=== PATIENT | female | born 1940 | race Caucasian/White ===

== ENCOUNTER 2017-03-30 13:25 | Inpatient (IN) | payer MEDICARE ==
[~2017-03-30] VITALS: Ht 154.9 cm; Wt 54.3 kg
[2017-03-30] MEDS ORDERED: ONDANSETRON 2MG/ML, 2ML IVPush ONE (14:00)
[2017-03-30] MEDS ORDERED: SODIUM CHLORIDE FLUSH 10ML SYR IVF ONE (14:00)
[2017-03-30] MEDS ORDERED: SODIUM CHLORIDE 0.9% 1,000ML IVBOLUS ONE (14:00)
[2017-03-30] MEDS ORDERED: AMLO2.5T PO (14:19)
[2017-03-30] MEDS ORDERED: LEVO75TA5 PO (14:19)
[2017-03-30] MEDS ORDERED: TRAM50TA2 PO (14:19)
[2017-03-30] MEDS ORDERED: ALPR-475 PO (14:19)
[2017-03-30] MEDS ORDERED: ONDANSETRON 2MG/ML, 2ML ONE (14:28)
[2017-03-30] MEDS ORDERED: MORPHINE SULFATE 4 MG/ML, 1ML ONE ×2 (14:28→18:05)
[2017-03-30] MEDS: MORPHINE SULFATE 4 MG/ML, 1ML IVPush PRN ×2 (14:30→18:06)
[2017-03-30] MEDS ORDERED: ACETAMINOPHEN 325 MG SUPP ONE (14:37)
[2017-03-30] MEDS ORDERED: ACETAMINOPHEN 650 MG SUPP PR ONE (15:00)
[2017-03-30 15:02] LABS: ASPARTATE AMINO TRANSFERASE 28 U/L (15-37)
[2017-03-30 15:04] LABS: PATH.CAST-FLAG NOT PRESENT; SPERM-FLAG NOT PRESENT; SRC-FLAG NOT PRESENT; XTAL-FLAG NOT PRESENT; YLC-FLAG NOT PRESENT
[2017-03-30 15:07] LABS: BLOOD UREA NITROGEN 23 mg/dL (7-18)
[2017-03-30 15:08] LABS: ACETAMINOPHEN < 2 mcg/mL (10-30); IS PT STATUS REG ER OR PRE ER? YES
[2017-03-30] MEDS ORDERED: LABETALOL 5MG/ML, 20ML IVPush ONE (16:00)
[2017-03-30] MEDS ORDERED: LABETALOL 5MG/ML, 20ML ONE (16:02)
[2017-03-30] MEDS ORDERED: DOCUSATE 100 MG CAPSULE PO PRN (18:00)
[2017-03-30] MEDS ORDERED: POLYETHYLENE GLYCOL 17 GM PACKET PO PRN (18:00)
[2017-03-30] MEDS ORDERED: BISACODYL 10 MG SUPP PR PRN (18:00)
[2017-03-30] MEDS: SODIUM CHLORIDE 0.9% 1,000 ML IV SCH (18:06)
[2017-03-30 20:33] VITALS: BP 172/67
[2017-03-30] MEDS: ENALAPRILAT 1.25 MG/ML, 2ML IVPush PRN (21:17)
[2017-03-30] MEDS: FAMOTIDINE 20 MG/2 ML IVPush SCH (22:21)
[2017-03-31] MEDS: ACETAMINOPHEN 325 MG TABLET PO PRN (01:31)
[2017-03-31 04:22] VITALS: BP 128/69
[2017-03-31 04:34] LABS: BLOOD UREA NITROGEN 23 mg/dL (7-18)
[2017-03-31 04:42] LABS: ASPARTATE AMINO TRANSFERASE 17 U/L (15-37)
[2017-03-31] MEDS: ENALAPRILAT 1.25 MG/ML, 2ML IVPush PRN ×2 (05:03→23:05)
[2017-03-31] MEDS: LEVOTHYROXINE 75 MCG TABLET PO SCH (05:45)
[2017-03-31] MEDS: SODIUM CHLORIDE 0.9% 1,000 ML IV SCH ×2 (05:59→22:02)
[2017-03-31] MEDS: FAMOTIDINE 20 MG/2 ML IVPush SCH ×2 (09:00→21:00)
[2017-03-31] MEDS ORDERED: LORazepam 1MG TABLET ONE (09:59)
[2017-03-31] MEDS ORDERED: LORazepam 0.5MG TABLET PO PRN (10:00)
[2017-04-01] MEDS: hydrALAzine 20 MG/ML, 1ML IV PRN ×3 (00:40→17:29)
[2017-04-01] MEDS: LABETALOL 5MG/ML, 20ML IVPush PRN ×3 (03:02→19:42)
[2017-04-01 04:00] VITALS: BP 160/62
[2017-04-01 04:34] LABS: BLOOD UREA NITROGEN 14 mg/dL (7-18)
[2017-04-01 04:39] LABS: ASPARTATE AMINO TRANSFERASE 20 U/L (15-37)
[2017-04-01] MEDS: ENALAPRILAT 1.25 MG/ML, 2ML IVPush PRN ×2 (05:15→21:25)
[2017-04-01] MEDS: LEVOTHYROXINE 75 MCG TABLET PO SCH (06:35)
[2017-04-01] MEDS: FAMOTIDINE 20 MG/2 ML IVPush SCH ×2 (07:47→21:06)
[2017-04-01] MEDS ORDERED: POTASSIUM CHLORIDE 10% 40 MEQ/30 ML UDC PO ONE (08:00)
[2017-04-01] MEDS ORDERED: GADOBUTROL 7.5 MMOL/7.5 ML PFS ONE (12:58)
[2017-04-01] MEDS: SODIUM CHLORIDE 0.9% 1,000 ML IV SCH (14:54)
[2017-04-02] MEDS: LABETALOL 5MG/ML, 20ML IVPush PRN (00:08)
[2017-04-02] MEDS: hydrALAzine 20 MG/ML, 1ML IV PRN ×3 (01:02→10:36)
[2017-04-02 04:00] VITALS: BP 157/102
[2017-04-02] MEDS: SODIUM CHLORIDE 0.9% 1,000 ML IV SCH ×2 (04:46→18:09)
[2017-04-02] MEDS: LEVOTHYROXINE 75 MCG TABLET PO SCH (05:27)
[2017-04-02] MEDS: FAMOTIDINE 20 MG/2 ML IVPush SCH ×2 (09:54→21:21)
[2017-04-02] MEDS: LORazepam 0.5MG TABLET PO SCH ×2 (12:44→21:21)
[2017-04-02] MEDS: LISINOPRIL 10 MG TABLET PO SCH ×2 (12:45→21:26)
[2017-04-02 20:17] VITALS: BP 164/69
[2017-04-03 01:54] VITALS: BP 186/88
[2017-04-03 06:10] LABS: BLOOD UREA NITROGEN 19 mg/dL (7-18)
[2017-04-03] MEDS: LEVOTHYROXINE 75 MCG TABLET PO SCH (06:26)
[2017-04-03 06:50] VITALS: BP 168/51
[2017-04-03] MEDS: SODIUM CHLORIDE 0.9% 1,000 ML IV SCH ×2 (07:53→20:09)
[2017-04-03] MEDS: LORazepam 0.5MG TABLET PO SCH ×3 (10:20→23:43)
[2017-04-03] MEDS: LISINOPRIL 10 MG TABLET PO SCH ×2 (10:21→20:10)
[2017-04-03] MEDS: FAMOTIDINE 20 MG/2 ML IVPush SCH (10:21)
[2017-04-03 12:25] VITALS: BP 150/76
[2017-04-03] MEDS: AMLODIPINE 5 MG TABLET PO SCH (12:39)
[2017-04-03 18:34] VITALS: BP 163/76
[2017-04-03] MEDS: LEVOFLOXACIN/PMX 750MG/150ML 150 ML IV SCH (20:10)
[2017-04-03] MEDS ORDERED: ALBUTEROL SULFATE 2.5 MG/3 ML ONE (23:32)
[2017-04-03] MEDS: ACETAMINOPHEN 325 MG TABLET PO PRN (23:43)
[2017-04-04] MEDS ORDERED: ALBUTEROL SULFATE 2.5 MG/3 ML NPPB PRN (00:30)
[2017-04-04 00:33] VITALS: BP 157/73
[2017-04-04] MEDS: LEVOTHYROXINE 75 MCG TABLET PO SCH (06:12)
[2017-04-04 08:00] VITALS: BP 174/74
[2017-04-04] MEDS: LISINOPRIL 10 MG TABLET PO SCH ×2 (09:12→20:36)
[2017-04-04] MEDS: PIPERACILLIN/TAZO 3.375 GM in SODIUM CHLORIDE 0.9% 50 ML IV SCH ×3 (09:12→19:36)
[2017-04-04] MEDS: AMLODIPINE 5 MG TABLET PO SCH (09:12)
[2017-04-04] MEDS: LORazepam 0.5MG TABLET PO SCH ×3 (09:12→20:35)
[2017-04-04] MEDS: SODIUM CHLORIDE 0.9% 1,000 ML IV SCH (13:52)
[2017-04-04 14:00] VITALS: BP 133/70
[2017-04-04 19:34] VITALS: BP 154/67
[2017-04-04] MEDS: LEVOFLOXACIN/PMX 750MG/150ML 150 ML IV SCH (20:35)
[2017-04-05] MEDS: PIPERACILLIN/TAZO 3.375 GM in SODIUM CHLORIDE 0.9% 50 ML IV SCH ×3 (00:41→18:47)
[2017-04-05 01:24] VITALS: BP 155/86
[2017-04-05] MEDS: SODIUM CHLORIDE 0.9% 1,000 ML IV SCH ×2 (03:17→23:25)
[2017-04-05] MEDS: LEVOTHYROXINE 75 MCG TABLET PO SCH (05:24)
[2017-04-05 05:46] LABS: BLOOD UREA NITROGEN 25 mg/dL (7-18)
[2017-04-05 06:40] VITALS: BP 153/72
[2017-04-05] MEDS: LORazepam 0.5MG TABLET PO SCH (09:00)
[2017-04-05] MEDS: AMLODIPINE 5 MG TABLET PO SCH (10:31)
[2017-04-05] MEDS: LISINOPRIL 10 MG TABLET PO SCH ×2 (10:32→20:47)
[2017-04-05 12:14] VITALS: BP 137/64
[2017-04-05 19:34] VITALS: BP 164/72
[2017-04-05] MEDS: LEVOFLOXACIN/PMX 750MG/150ML 150 ML IV SCH (20:47)
[2017-04-06] MEDS: PIPERACILLIN/TAZO 3.375 GM in SODIUM CHLORIDE 0.9% 50 ML IV SCH ×3 (00:58→13:00)
[2017-04-06 01:03] VITALS: BP 159/71
[2017-04-06] MEDS: LEVOTHYROXINE 75 MCG TABLET PO SCH (05:49)
[2017-04-06 06:07] LABS: BLOOD UREA NITROGEN 21 mg/dL (7-18)
[2017-04-06 07:10] VITALS: BP 169/73
[2017-04-06] MEDS ORDERED: LISI-167 PO (10:02)
[2017-04-06] MEDS ORDERED: AMLO2.5T PO (10:02)
[2017-04-06] MEDS ORDERED: PIPE3.373 IV (10:02)
[2017-04-06] MEDS: LISINOPRIL 10 MG TABLET PO SCH (10:41)
[2017-04-06] MEDS ORDERED: AMLODIPINE 5 MG TABLET PO ONE (12:45)
[2017-04-07] MEDS ORDERED: AMLODIPINE 5 MG TABLET PO SCH (09:00)
== END 2017-04-06 14:23 | DRG 64 ==
LOC: ED 16:30 → EDIP 16:38 → ICU 20:02 → CCU 04-01 18:19 → 4EST 04-02 17:58
PROVIDERS: ADMIT Hospitalist; ATTEND Hospitalist
DX: I63.532 Cerebral infarction due to unspecified occlusion or stenosis of left posterior cerebral artery (principal); I61.1 Nontraumatic intracerebral hemorrhage in hemisphere, cortical; J18.9 Pneumonia, unspecified organism; N17.0 Acute kidney failure with tubular necrosis; I10 Essential (primary) hypertension; E03.9 Hypothyroidism, unspecified; H54.7 Unspecified visual loss; H53.40 Unspecified visual field defects; H35.30 Unspecified macular degeneration; I25.10 Atherosclerotic heart disease of native coronary artery without angina pectoris; Z77.22 Contact with and (suspected) exposure to environmental tobacco smoke (acute) (chronic); G89.29 Other chronic pain; H53.462 Homonymous bilateral field defects, left side; H53.8 Other visual disturbances; I49.3 Ventricular premature depolarization; M54.5 Low back pain; Z88.5 Allergy status to narcotic agent; Z79.899 Other long term (current) drug therapy; Z87.891 Personal history of nicotine dependence
CPT/HCPCS: 36415; 70450; 70544; 70553; 71010; 80048; 80053; 80061; 80307; 80329; 81001; 82140; 83605; 83735; 84145; 84439; 84443; 84484; 85025; 85610; 85730; 87040; 87081; 93005; 93306; 94640; 96361; 96374; 96375; A9585; J1956; J2405; J2543; 92523-GN; G0480; J0360; J7030; S0028

== ENCOUNTER 2017-05-03 16:09 | Inpatient (IN) | payer MEDICARE ==
[~2017-05-03] VITALS: Ht 154.9 cm; Wt 47.8 kg
[~2017-05-03 16:09] MED LIST: ALPR-475 PO; AMLO2.5T PO; LEVO75TA5 PO; LISI-167 PO; PIPE3.373 IV; TRAM50TA2 PO
[2017-05-03] MEDS ORDERED: SODIUM CHLORIDE FLUSH 10ML SYR IVF ONE (16:30)
[2017-05-03] MEDS ORDERED: SODIUM CHLORIDE 0.9% 1,000ML IVBOLUS ONE (16:30)
[2017-05-03 16:58] LABS: ASPARTATE AMINO TRANSFERASE 15 U/L (15-37); BLOOD UREA NITROGEN 73 mg/dL (7-18)
[2017-05-03] MEDS ORDERED: SODIUM CHLORIDE 0.9%, 500ML IVBOLUS ONE (18:00)
[2017-05-03] MEDS ORDERED: METRONIDAZOLE PMX 500MG/100ML 100 ML IV ONE (18:00)
[2017-05-03] MEDS ORDERED: METRONIDAZOLE PMX 500MG/100ML 100 ML ONE (18:01)
[2017-05-03] MEDS ORDERED: ACET325T14 PO (18:47)
[2017-05-03] MEDS ORDERED: LORA0.5T PO (18:47)
[2017-05-03] MEDS ORDERED: HYDR12.58 PO (18:47)
[2017-05-03] MEDS ORDERED: LISI-170 PO (18:47)
[2017-05-03] MEDS ORDERED: LACT1CAP35 PO (18:47)
[2017-05-03] MEDS ORDERED: PROP1DRO EACH EAR (18:47)
[2017-05-03] MEDS ORDERED: ENOXAPARIN 40 MG/0.4 ML SQ SCH (21:30)
[2017-05-03] MEDS ORDERED: ONDANSETRON 2MG/ML, 2ML IVPush PRN (21:30)
[2017-05-03] MEDS: SODIUM CHLORIDE 0.9% 1,000 ML IV SCH (21:53)
[2017-05-03 23:55] VITALS: BP 158/76
[2017-05-04] MEDS: metroNIDAZOLE 500 MG TABLET PO SCH ×4 (02:34→22:05)
[2017-05-04 02:51] VITALS: BP 116/65
[2017-05-04] MEDS ORDERED: LORazepam 1MG TABLET PO ONE (05:00)
[2017-05-04 06:15] LABS: BLOOD UREA NITROGEN 59 mg/dL (7-18)
[2017-05-04 07:59] VITALS: BP 148/77
[2017-05-04] MEDS ORDERED: LACTOBACILLUS CHEW TABLET PO SCH (09:00)
[2017-05-04] MEDS: LEVOTHYROXINE 75 MCG TABLET PO SCH (09:51)
[2017-05-04] MEDS: LISINOPRIL 20 MG TABLET PO SCH ×2 (09:52→22:05)
[2017-05-04] MEDS: AMLODIPINE 5 MG TABLET PO SCH (09:52)
[2017-05-04] MEDS: SODIUM CHLORIDE 0.9% 1,000 ML IV SCH ×2 (09:53→18:25)
[2017-05-04 12:09] VITALS: BP 134/73
[2017-05-04] MEDS: LACTOBACILLUS CHEW TABLET PO SCH ×2 (13:11→18:24)
[2017-05-04 18:56] VITALS: BP 146/72
[2017-05-04] MEDS ORDERED: ENOXAPARIN 30 MG/0.3 ML SQ SCH (21:30)
[2017-05-04] MEDS: LORazepam 0.5MG TABLET PO SCH (22:05)
[2017-05-05] MEDS: SODIUM CHLORIDE 0.9% 1,000 ML IV SCH ×3 (01:02→19:00)
[2017-05-05 03:10] VITALS: BP 137/70
[2017-05-05 06:35] LABS: BLOOD UREA NITROGEN 36 mg/dL (7-18)
[2017-05-05 06:50] VITALS: BP 147/78
[2017-05-05] MEDS: LEVOTHYROXINE 75 MCG TABLET PO SCH (09:18)
[2017-05-05] MEDS: LISINOPRIL 20 MG TABLET PO SCH ×2 (09:18→21:05)
[2017-05-05] MEDS: metroNIDAZOLE 500 MG TABLET PO SCH ×3 (09:19→21:05)
[2017-05-05] MEDS: AMLODIPINE 5 MG TABLET PO SCH (09:19)
[2017-05-05] MEDS: LACTOBACILLUS CHEW TABLET PO SCH ×3 (09:19→17:42)
[2017-05-05 12:49] VITALS: BP 120/68
[2017-05-05 18:20] VITALS: BP 125/68
[2017-05-05] MEDS: LORazepam 0.5MG TABLET PO SCH (21:05)
[2017-05-06 01:47] VITALS: BP 147/62
[2017-05-06] MEDS: SODIUM CHLORIDE 0.9% 1,000 ML IV SCH ×3 (01:57→21:14)
[2017-05-06 05:16] LABS: BLOOD UREA NITROGEN 24 mg/dL (7-18)
[2017-05-06] MEDS: LACTOBACILLUS CHEW TABLET PO SCH ×3 (06:35→16:48)
[2017-05-06 07:16] VITALS: BP 152/72
[2017-05-06] MEDS: AMLODIPINE 5 MG TABLET PO SCH (08:27)
[2017-05-06] MEDS: metroNIDAZOLE 500 MG TABLET PO SCH ×3 (08:27→21:17)
[2017-05-06] MEDS: LEVOTHYROXINE 75 MCG TABLET PO SCH (08:27)
[2017-05-06] MEDS: LISINOPRIL 20 MG TABLET PO SCH ×2 (08:28→21:12)
[2017-05-06] MEDS: CHOLESTYRAMINE LIGHT 4GM PACKET PO PRN (10:44)
[2017-05-06 15:56] VITALS: BP 148/68
[2017-05-06 19:45] VITALS: BP 160/83
[2017-05-06] MEDS: LORazepam 0.5MG TABLET PO SCH (21:12)
[2017-05-07 02:59] VITALS: BP 146/67
[2017-05-07] MEDS: SODIUM CHLORIDE 0.9% 1,000 ML IV SCH ×2 (03:19→11:00)
[2017-05-07 05:43] LABS: BLOOD UREA NITROGEN 15 mg/dL (7-18)
[2017-05-07 07:32] VITALS: BP 154/81
[2017-05-07] MEDS: LACTOBACILLUS CHEW TABLET PO SCH ×3 (08:40→16:31)
[2017-05-07] MEDS: LISINOPRIL 20 MG TABLET PO SCH ×2 (08:40→20:44)
[2017-05-07] MEDS: LEVOTHYROXINE 75 MCG TABLET PO SCH (08:40)
[2017-05-07] MEDS: metroNIDAZOLE 500 MG TABLET PO SCH ×3 (08:40→20:44)
[2017-05-07] MEDS: AMLODIPINE 5 MG TABLET PO SCH (08:40)
[2017-05-07] MEDS ORDERED: CHOL239. PO (12:25)
[2017-05-07] MEDS ORDERED: METR500T PO (12:25)
[2017-05-07 13:26] VITALS: BP 149/73
[2017-05-07] MEDS: ACETAMINOPHEN 325 MG TABLET PO PRN (19:41)
[2017-05-07 20:00] VITALS: BP 145/75
[2017-05-07] MEDS: LORazepam 0.5MG TABLET PO SCH (20:44)
[2017-05-08 02:05] VITALS: BP 141/74
[2017-05-08] MEDS: ACETAMINOPHEN 325 MG TABLET PO PRN (04:45)
[2017-05-08] MEDS: LEVOTHYROXINE 75 MCG TABLET PO SCH (08:32)
[2017-05-08] MEDS: LACTOBACILLUS CHEW TABLET PO SCH ×3 (08:32→16:53)
[2017-05-08] MEDS: metroNIDAZOLE 500 MG TABLET PO SCH ×3 (08:32→19:58)
[2017-05-08] MEDS: AMLODIPINE 5 MG TABLET PO SCH (08:32)
[2017-05-08] MEDS: LISINOPRIL 20 MG TABLET PO SCH ×2 (08:32→19:58)
[2017-05-08 08:33] VITALS: BP 140/77
[2017-05-08] MEDS: CHOLESTYRAMINE LIGHT 4GM PACKET PO PRN (11:38)
[2017-05-08 14:27] VITALS: BP 152/76
[2017-05-08] MEDS ORDERED: ONDANSETRON 2MG/ML, 2ML IVPush PRN (16:30)
[2017-05-08 19:23] VITALS: BP 157/93
[2017-05-08] MEDS: TRAZODONE 50MG TABLET PO SCH (19:58)
[2017-05-09] MEDS ORDERED: ZOLPIDEM 5MG TABLET PO ONE (00:30)
[2017-05-09 02:54] VITALS: BP 128/27
[2017-05-09 05:10] LABS: BLOOD UREA NITROGEN 11 mg/dL (7-18)
[2017-05-09 07:49] VITALS: BP 138/73
[2017-05-09] MEDS ORDERED: HYDROCHLOROTHIAZIDE 12.5 MG CAPSULE PO SCH (09:00)
[2017-05-09] MEDS: AMLODIPINE 5 MG TABLET PO SCH (09:26)
[2017-05-09] MEDS: LACTOBACILLUS CHEW TABLET PO SCH ×3 (09:26→16:03)
[2017-05-09] MEDS: HYDROCHLOROTHIAZIDE 12.5 MG CAPSULE PO SCH (09:26)
[2017-05-09] MEDS: LISINOPRIL 20 MG TABLET PO SCH ×2 (09:26→21:55)
[2017-05-09] MEDS: metroNIDAZOLE 500 MG TABLET PO SCH ×3 (09:26→21:55)
[2017-05-09] MEDS: LEVOTHYROXINE 75 MCG TABLET PO SCH (09:27)
[2017-05-09 12:50] VITALS: BP 122/65
[2017-05-09 19:23] VITALS: BP 107/62
[2017-05-09] MEDS: TRAZODONE 50MG TABLET PO SCH (21:55)
[2017-05-09] MEDS: ZOLPIDEM 5MG TABLET PO PRN (22:42)
[2017-05-10 01:40] VITALS: BP 93/53
[2017-05-10 05:28] LABS: BLOOD UREA NITROGEN 18 mg/dL (7-18)
[2017-05-10] MEDS: LACTOBACILLUS CHEW TABLET PO SCH ×3 (08:44→16:00)
[2017-05-10] MEDS: AMLODIPINE 5 MG TABLET PO SCH (08:45)
[2017-05-10] MEDS: LISINOPRIL 20 MG TABLET PO SCH ×2 (08:45→21:00)
[2017-05-10] MEDS: metroNIDAZOLE 500 MG TABLET PO SCH ×3 (08:45→21:01)
[2017-05-10] MEDS: LEVOTHYROXINE 75 MCG TABLET PO SCH (08:45)
[2017-05-10] MEDS: HYDROCHLOROTHIAZIDE 12.5 MG CAPSULE PO SCH (08:45)
[2017-05-10 08:54] VITALS: BP 121/65
[2017-05-10 15:10] VITALS: BP 103/55
[2017-05-10] MEDS ORDERED: ZIPRASIDONE 20 MG INJ IM ONE (18:00)
[2017-05-10 19:24] VITALS: BP 97/60
[2017-05-10] MEDS ORDERED: ARTIFICIAL TEARS OPHTH SOLN 15ML EACHEYE SCH (21:00)
[2017-05-10] MEDS: TRAZODONE 50MG TABLET PO SCH (21:02)
[2017-05-11 01:49] VITALS: BP 113/64
[2017-05-11] MEDS: ACETAMINOPHEN 325 MG TABLET PO PRN ×2 (06:15→23:49)
[2017-05-11] MEDS: LACTOBACILLUS CHEW TABLET PO SCH ×3 (07:00→16:07)
[2017-05-11 07:39] VITALS: BP 108/67
[2017-05-11] MEDS: AMLODIPINE 5 MG TABLET PO SCH (10:16)
[2017-05-11] MEDS: LEVOTHYROXINE 75 MCG TABLET PO SCH (10:16)
[2017-05-11] MEDS: HYDROCHLOROTHIAZIDE 12.5 MG CAPSULE PO SCH (10:16)
[2017-05-11] MEDS: LISINOPRIL 20 MG TABLET PO SCH (10:16)
[2017-05-11] MEDS: metroNIDAZOLE 500 MG TABLET PO SCH ×3 (10:16→20:18)
[2017-05-11 13:42] VITALS: BP 114/62
[2017-05-11 16:47] LABS: BLOOD UREA NITROGEN 28 mg/dL (7-18)
[2017-05-11] MEDS ORDERED: SODIUM CHLORIDE 0.9% 1,000 ML IV SCH (17:34)
[2017-05-11 19:51] VITALS: BP 135/72
[2017-05-11] MEDS: TRAZODONE 50MG TABLET PO SCH (20:18)
[2017-05-11] MEDS: ZOLPIDEM 5MG TABLET PO PRN (23:49)
[2017-05-12 01:12] VITALS: BP 118/70
[2017-05-12 05:33] LABS: BLOOD UREA NITROGEN 35 mg/dL (7-18)
[2017-05-12 07:16] VITALS: BP 123/74
[2017-05-12] MEDS: LACTOBACILLUS CHEW TABLET PO SCH ×3 (08:42→15:40)
[2017-05-12] MEDS: AMLODIPINE 5 MG TABLET PO SCH (08:43)
[2017-05-12] MEDS: metroNIDAZOLE 500 MG TABLET PO SCH ×3 (08:43→20:38)
[2017-05-12] MEDS: LEVOTHYROXINE 75 MCG TABLET PO SCH (08:43)
[2017-05-12] MEDS ORDERED: CARBAMIDE PEROXIDE EAR DROPS 6.5%, 15ML RIGHT EAR PRN (11:30)
[2017-05-12 11:40] LABS: PATH.CAST-FLAG NOT PRESENT; SPERM-FLAG NOT PRESENT; SRC-FLAG NOT PRESENT; XTAL-FLAG NOT PRESENT; YLC-FLAG NOT PRESENT
[2017-05-12] MEDS: SODIUM CHLORIDE 0.9% 1,000 ML IV SCH ×2 (12:22→18:15)
[2017-05-12 13:18] VITALS: BP 102/55
[2017-05-12] MEDS ORDERED: ZIPRASIDONE 20 MG INJ IM ONE (19:00)
[2017-05-12] MEDS: TRAZODONE 50MG TABLET PO SCH (20:38)
[2017-05-12 20:45] VITALS: BP 145/75
[2017-05-13] MEDS: SODIUM CHLORIDE 0.9% 1,000 ML IV SCH ×2 (01:58→10:31)
[2017-05-13 02:22] VITALS: BP 145/68
[2017-05-13 05:58] LABS: BLOOD UREA NITROGEN 24 mg/dL (7-18)
[2017-05-13 08:24] VITALS: BP 133/80
[2017-05-13] MEDS: AMLODIPINE 5 MG TABLET PO SCH (08:58)
[2017-05-13] MEDS: LACTOBACILLUS CHEW TABLET PO SCH ×2 (08:58→11:00)
[2017-05-13] MEDS: LEVOTHYROXINE 75 MCG TABLET PO SCH (08:59)
[2017-05-13] MEDS ORDERED: LISINOPRIL 20 MG TABLET PO SCH (09:00)
[2017-05-13] MEDS: metroNIDAZOLE 500 MG TABLET PO SCH ×2 (10:31→15:31)
[2017-05-13] MEDS ORDERED: [UNRECOGNIZED DRUG - CODE] RIGHT EAR (10:38)
[2017-05-13] MEDS ORDERED: METR500T PO (10:38)
[2017-05-13 14:06] VITALS: BP 118/63
== END 2017-05-13 15:40 | disposition home or self-care (01) | DRG 871 ==
LOC: ED 18:47 → SUATTDRO 21:23 → EDIP 21:26 → 3NE 23:34
PROVIDERS: ADMIT Internal Medicine; ATTEND Internal Medicine
DX: A41.9 Sepsis, unspecified organism (principal); N17.0 Acute kidney failure with tubular necrosis; A04.7 Enterocolitis due to Clostridium difficile; E44.1 Mild protein-calorie malnutrition; Z68.1 Body mass index [BMI] 19.9 or less, adult; E03.9 Hypothyroidism, unspecified; E86.0 Dehydration; F41.1 Generalized anxiety disorder; H54.0 Blindness, both eyes; H61.21 Impacted cerumen, right ear; I10 Essential (primary) hypertension; R13.10 Dysphagia, unspecified; Z66 Do not resuscitate; Z86.73 Personal history of transient ischemic attack (TIA), and cerebral infarction without residual deficits; Z87.891 Personal history of nicotine dependence
CPT/HCPCS: 36415; 74020; 80048; 80053; 81001; 83690; 83735; 84100; 84300; 85025; 87040; 87086; 87324; 89055; 96361; 96365; 96366; J2405; J3486; J7030; J7040

== ENCOUNTER 2017-05-27 13:45 | Inpatient (IN) | payer MEDICARE ==
[~2017-05-27] VITALS: Ht 157.5 cm; Wt 51.7 kg
[~2017-05-27 13:45] MED LIST changes: +ACET325T14 PO; +CHOL239. PO; +HYDR12.58 PO; +LACT1CAP35 PO; +LISI-170 PO; +LORA0.5T PO; +METR500T PO; +PROP1DRO EACH EAR; +[UNRECOGNIZED DRUG - CODE] RIGHT EAR
[2017-05-27] MEDS ORDERED: SODIUM CHLORIDE 0.9% 1,000 ML IV ONE (13:54)
[2017-05-27] MEDS ORDERED: SODIUM CHLORIDE FLUSH 10ML SYR IVF ONE (14:00)
[2017-05-27 14:25] LABS: HEMATOCRIT 44.7 % (34.6-47.8); HEMOGLOBIN 14.8 g/dL (11.7-16.4); WHITE BLOOD COUNT 9.5 x10^3/uL (3.4-10)
[2017-05-27 14:37] LABS: ASPARTATE AMINO TRANSFERASE 18 U/L (15-37); BLOOD UREA NITROGEN 31 mg/dL (7-18)
[2017-05-27] MEDS ORDERED: SODIUM CHLORIDE 0.9%, 500ML IVBOLUS ONE (16:30)
[2017-05-27 19:26] VITALS: BP 119/62
[2017-05-27] MEDS ORDERED: ENALAPRILAT 1.25 MG/ML, 2ML IVPush PRN (19:30)
[2017-05-27] MEDS ORDERED: ACETAMINOPHEN 325 MG TABLET PO PRN (19:30)
[2017-05-27] MEDS ORDERED: ONDANSETRON ODT 4 MG PO PRN (19:30)
[2017-05-27] MEDS ORDERED: ARTIFICIAL TEARS OPHTH SOLN 15ML EACHEYE PRN (21:30)
[2017-05-27] MEDS ORDERED: LORazepam 1MG TABLET ONE (21:42)
[2017-05-27] MEDS: HEPARIN 5,000 UNITS/ML, 1ML SQ SCH (22:04)
[2017-05-27] MEDS: LORazepam 0.5MG TABLET PO SCH (22:04)
[2017-05-27] MEDS: SODIUM CHLORIDE 0.9% 1,000 ML IV SCH (22:06)
[2017-05-27] MEDS: VANCOMYCIN 50 MG/ML ORAL SUSP PO SCH (22:07)
[2017-05-27 22:35] VITALS: BP 141/71
[2017-05-27] MEDS: LISINOPRIL 20 MG TABLET PO SCH (22:37)
[2017-05-27 22:40] LABS: PATH.CAST-FLAG NOT PRESENT; SPERM-FLAG NOT PRESENT; SRC-FLAG NOT PRESENT; XTAL-FLAG NOT PRESENT; YLC-FLAG NOT PRESENT
[2017-05-28 01:28] VITALS: BP 149/63
[2017-05-28] MEDS: VANCOMYCIN 50 MG/ML ORAL SUSP PO SCH ×2 (04:04→10:02)
[2017-05-28 06:04] LABS: HEMATOCRIT 36.5 % (34.6-47.8); HEMOGLOBIN 12.2 g/dL (11.7-16.4); WHITE BLOOD COUNT 6.4 x10^3/uL (3.4-10)
[2017-05-28 06:20] LABS: BLOOD UREA NITROGEN 25 mg/dL (7-18)
[2017-05-28] MEDS: LACTOBACILLUS 1GM/ PACKET PO SCH ×4 (06:25→21:18)
[2017-05-28] MEDS: SODIUM CHLORIDE 0.9% 1,000 ML IV SCH ×2 (06:26→16:36)
[2017-05-28] MEDS: HEPARIN 5,000 UNITS/ML, 1ML SQ SCH ×3 (06:26→21:18)
[2017-05-28 08:11] VITALS: BP 165/75
[2017-05-28] MEDS: LEVOTHYROXINE 75 MCG TABLET PO SCH (08:21)
[2017-05-28] MEDS: LISINOPRIL 20 MG TABLET PO SCH ×2 (08:21→21:18)
[2017-05-28] MEDS: AMLODIPINE 2.5 MG TABLET PO SCH (08:21)
[2017-05-28 12:18] VITALS: BP 138/71
[2017-05-28] MEDS ORDERED: ONDANSETRON ODT 4 MG PO PRN (18:30)
[2017-05-28] MEDS ORDERED: ARTIFICIAL TEARS OPHTH SOLN 15ML EACHEYE PRN (18:30)
[2017-05-28] MEDS ORDERED: ACETAMINOPHEN 325 MG TABLET PO PRN (18:30)
[2017-05-28 18:45] VITALS: BP 134/67
[2017-05-28] MEDS: LORazepam 0.5MG TABLET PO SCH (21:18)
[2017-05-29 01:55] VITALS: BP 148/74
[2017-05-29] MEDS: LACTOBACILLUS 1GM/ PACKET PO SCH ×2 (05:17→13:20)
[2017-05-29] MEDS: HEPARIN 5,000 UNITS/ML, 1ML SQ SCH ×2 (05:18→14:00)
[2017-05-29] MEDS: SODIUM CHLORIDE 0.9% 1,000 ML IV SCH (05:24)
[2017-05-29 05:50] LABS: BLOOD UREA NITROGEN 15 mg/dL (7-18)
[2017-05-29 07:20] VITALS: BP 142/59
[2017-05-29] MEDS: AMLODIPINE 2.5 MG TABLET PO SCH (08:51)
[2017-05-29] MEDS: LISINOPRIL 20 MG TABLET PO SCH (08:51)
[2017-05-29] MEDS: LEVOTHYROXINE 75 MCG TABLET PO SCH (08:51)
[2017-05-29 12:38] VITALS: BP 138/72
== END 2017-05-29 14:20 | disposition home or self-care (01) | DRG 391 ==
LOC: ED 17:35 → EDIP 17:36 → ED 17:40 → 4NOR 18:49
PROVIDERS: ADMIT Internal Medicine; ATTEND Internal Medicine
DX: K52.9 Noninfective gastroenteritis and colitis, unspecified (principal); N17.0 Acute kidney failure with tubular necrosis; E86.0 Dehydration; F03.90 Unspecified dementia, unspecified severity, without behavioral disturbance, psychotic disturbance, mood disturbance, and anxiety; Z88.6 Allergy status to analgesic agent; E03.9 Hypothyroidism, unspecified; H54.0 Blindness, both eyes; I10 Essential (primary) hypertension; Z87.01 Personal history of pneumonia (recurrent); Z87.891 Personal history of nicotine dependence; Z86.73 Personal history of transient ischemic attack (TIA), and cerebral infarction without residual deficits
CPT/HCPCS: 36415; 74000; 80048; 80053; 81001; 83735; 84100; 85025; 87086; 87324; 96360; 96361; J1644; J3370; J7030; J7040

== ENCOUNTER 2017-06-06 19:44 | Inpatient (IN) | payer MEDICARE ==
[~2017-06-06] VITALS: Ht 160 cm; Wt 46.9 kg
[2017-06-06 20:44] LABS: HEMATOCRIT 41.7 % (34.6-47.8); HEMOGLOBIN 13.9 g/dL (11.7-16.4); WHITE BLOOD COUNT 22.5 x10^3/uL (3.4-10)
[2017-06-06 20:51] LABS: BLOOD UREA NITROGEN 28 mg/dL (7-18)
[2017-06-06] MEDS ORDERED: SODIUM CHLORIDE 0.9%, 500ML IVBOLUS ONE (21:30)
[2017-06-06 21:35] LABS: DIFF TOTAL CELLS COUNTED 100 CELL DIFF
[2017-06-06 21:38] LABS: VERIFY COUNTS? YES
[2017-06-06] MEDS ORDERED: MORPHINE SULFATE 4 MG/ML, 1ML IVPush ONE (22:00)
[2017-06-06] MEDS ORDERED: MORPHINE SULFATE 4 MG/ML, 1ML ONE (22:11)
[2017-06-06 23:19] LABS: BLOOD UREA NITROGEN 28 mg/dL (7-18)
[2017-06-06 23:22] LABS: ASPARTATE AMINO TRANSFERASE 15 U/L (15-37)
[2017-06-07] MEDS: SODIUM CHLORIDE 0.9% 1,000 ML IV SCH ×2 (01:21→15:41)
[2017-06-07] MEDS ORDERED: ONDANSETRON 2MG/ML, 2ML IVPush PRN (01:30)
[2017-06-07] MEDS ORDERED: DOCUSATE 100 MG CAPSULE PO PRN (01:30)
[2017-06-07] MEDS ORDERED: POLYETHYLENE GLYCOL 17 GM PACKET PO PRN (01:30)
[2017-06-07] MEDS ORDERED: hydrALAzine 20 MG/ML, 1ML IVPush PRN (01:30)
[2017-06-07] MEDS ORDERED: BISACODYL 10 MG SUPP PR PRN (01:30)
[2017-06-07] MEDS ORDERED: ACETAMINOPHEN 325 MG TABLET PO PRN (01:30)
[2017-06-07] MEDS ORDERED: OMNIPAQUE 350 MG/ML, 75ML BOTTLE ONE (07:29)
[2017-06-07] MEDS ORDERED: HALOPERIDOL 5 MG/ML ONE (09:18)
[2017-06-07] MEDS ORDERED: KETOROLAC 30 MG/1 ML ONE (09:18)
[2017-06-07] MEDS ORDERED: KETOROLAC 30 MG/1 ML IM/IV ONE (09:30)
[2017-06-07] MEDS ORDERED: HALOPERIDOL 5 MG/ML IV PRN (09:30)
[2017-06-07] MEDS: HALOPERIDOL 5 MG/ML IM PRN (09:32)
[2017-06-07] MEDS: LACTOBACILLUS CHEW TABLET PO SCH ×3 (09:51→21:33)
[2017-06-07] MEDS: SENNA/DOCUSATE TABLET PO SCH (09:52)
[2017-06-07] MEDS: LEVOTHYROXINE 75 MCG TABLET PO SCH (09:52)
[2017-06-07] MEDS: AMLODIPINE 5 MG TABLET PO SCH (09:52)
[2017-06-07 15:20] VITALS: BP 127/73
[2017-06-07 19:04] VITALS: BP 118/58
[2017-06-07] MEDS: LORazepam 0.5MG TABLET PO SCH (21:33)
[2017-06-08] MEDS: SODIUM CHLORIDE 0.9% 1,000 ML IV SCH ×2 (04:00→17:22)
[2017-06-08 08:19] LABS: ASPARTATE AMINO TRANSFERASE 19 U/L (15-37); BLOOD UREA NITROGEN 21 mg/dL (7-18)
[2017-06-08 08:21] LABS: HEMATOCRIT 38.5 % (34.6-47.8); HEMOGLOBIN 12.8 g/dL (11.7-16.4); WHITE BLOOD COUNT 12.9 x10^3/uL (3.4-10)
[2017-06-08] MEDS: LACTOBACILLUS CHEW TABLET PO SCH ×3 (08:30→21:00)
[2017-06-08 08:40] VITALS: BP 158/76
[2017-06-08] MEDS: SENNA/DOCUSATE TABLET PO SCH (08:45)
[2017-06-08] MEDS: LEVOTHYROXINE 75 MCG TABLET PO SCH (08:45)
[2017-06-08] MEDS: AMLODIPINE 5 MG TABLET PO SCH (08:45)
[2017-06-08] MEDS ORDERED: HALOPERIDOL 5 MG/ML IM ONE (12:00)
[2017-06-08 12:30] VITALS: BP 150/83
[2017-06-08 19:28] VITALS: BP 170/75
[2017-06-08] MEDS: LORazepam 0.5MG TABLET PO SCH (21:00)
[2017-06-08 21:05] VITALS: BP 152/79
[2017-06-09] MEDS ORDERED: LORazepam 2 MG/ML, 1ML IVPush ONE (01:30)
[2017-06-09] MEDS: HALOPERIDOL 5 MG/ML IM PRN (01:35)
[2017-06-09 02:00] VITALS: BP 164/72
[2017-06-09] MEDS: SODIUM CHLORIDE 0.9% 1,000 ML IV SCH ×2 (06:40→22:22)
[2017-06-09 08:00] VITALS: BP 175/77
[2017-06-09] MEDS: SENNA/DOCUSATE TABLET PO SCH (09:00)
[2017-06-09 09:20] VITALS: BP 163/86
[2017-06-09] MEDS: LACTOBACILLUS CHEW TABLET PO SCH ×3 (09:48→22:21)
[2017-06-09] MEDS: LEVOTHYROXINE 75 MCG TABLET PO SCH (09:48)
[2017-06-09] MEDS: AMLODIPINE 5 MG TABLET PO SCH (09:49)
[2017-06-09 14:16] VITALS: BP 167/81
[2017-06-09 18:23] VITALS: BP 186/94
[2017-06-09] MEDS: LORazepam 0.5MG TABLET PO SCH (22:21)
[2017-06-10 02:40] VITALS: BP 157/78
[2017-06-10 03:35] VITALS: BP 170/80
[2017-06-10] MEDS: LEVOTHYROXINE 75 MCG TABLET PO SCH (05:52)
[2017-06-10 06:46] VITALS: BP 167/83
[2017-06-10] MEDS: SENNA/DOCUSATE TABLET PO SCH (08:02)
[2017-06-10] MEDS: AMLODIPINE 5 MG TABLET PO SCH (08:02)
[2017-06-10] MEDS: LACTOBACILLUS CHEW TABLET PO SCH ×3 (08:02→20:05)
[2017-06-10] MEDS: SODIUM CHLORIDE 0.9% 1,000 ML IV SCH (08:02)
[2017-06-10 13:47] VITALS: BP 138/67
[2017-06-10 19:22] VITALS: BP 110/61
[2017-06-10] MEDS ORDERED: SODIUM CHLORIDE 0.9% 1,000 ML IV SCH (20:00)
[2017-06-10] MEDS: LORazepam 0.5MG TABLET PO SCH (20:05)
[2017-06-11 02:41] VITALS: BP 126/70
[2017-06-11] MEDS: LEVOTHYROXINE 75 MCG TABLET PO SCH (05:30)
[2017-06-11 05:42] LABS: HEMATOCRIT 33.7 % (34.6-47.8); HEMOGLOBIN 11.1 g/dL (11.7-16.4); WHITE BLOOD COUNT 8.8 x10^3/uL (3.4-10)
[2017-06-11 05:43] LABS: BLOOD UREA NITROGEN 17 mg/dL (7-18)
[2017-06-11 07:43] VITALS: BP 123/63
[2017-06-11] MEDS: SENNA/DOCUSATE TABLET PO SCH (08:26)
[2017-06-11] MEDS: LACTOBACILLUS CHEW TABLET PO SCH (08:26)
[2017-06-11] MEDS: AMLODIPINE 5 MG TABLET PO SCH (08:26)
== END 2017-06-11 11:10 | disposition hospice, home (50) | DRG 94 ==
LOC: ED 20:13 → EDIP 06-07 00:19 → 3NE 06-07 12:47
PROVIDERS: ATTEND Hospitalist
PROC: 0T9B70Z Drainage of Bladder with Drainage Device, Via Natural or Artificial Opening (ICD-10-PCS; principal; 2017-06-06)
PROC: 0J973ZX Drainage of Back Subcutaneous Tissue and Fascia, Percutaneous Approach, Diagnostic (ICD-10-PCS; 2017-06-09)
DX: G06.1 Intraspinal abscess and granuloma (principal); E43 Unspecified severe protein-calorie malnutrition; N17.0 Acute kidney failure with tubular necrosis; M48.54XA Collapsed vertebra, not elsewhere classified, thoracic region, initial encounter for fracture; E87.1 Hypo-osmolality and hyponatremia; Z68.1 Body mass index [BMI] 19.9 or less, adult; W19.XXXA Unspecified fall, initial encounter; D72.829 Elevated white blood cell count, unspecified; E03.9 Hypothyroidism, unspecified; F03.90 Unspecified dementia, unspecified severity, without behavioral disturbance, psychotic disturbance, mood disturbance, and anxiety; F41.9 Anxiety disorder, unspecified; G89.29 Other chronic pain; H35.30 Unspecified macular degeneration; H54.0 Blindness, both eyes; R91.8 Other nonspecific abnormal finding of lung field; H91.90 Unspecified hearing loss, unspecified ear; I73.9 Peripheral vascular disease, unspecified; I11.9 Hypertensive heart disease without heart failure; J43.9 Emphysema, unspecified; M16.11 Unilateral primary osteoarthritis, right hip; M16.12 Unilateral primary osteoarthritis, left hip; Z51.5 Encounter for palliative care; Z79.899 Other long term (current) drug therapy; Z86.19 Personal history of other infectious and parasitic diseases; Z86.73 Personal history of transient ischemic attack (TIA), and cerebral infarction without residual deficits; Z87.01 Personal history of pneumonia (recurrent); Z87.891 Personal history of nicotine dependence; Z98.1 Arthrodesis status; Z88.5 Allergy status to narcotic agent
CPT/HCPCS: 10030; 36415; 71010; 71260; 72072; 72110; 72146; 72148; 73523; 74176; 76942; 80048; 80053; 81001; 82040; 83735; 84100; 85025; 85610; 87040; 87070; 87075; 87205; 93005; 96361; 96372; 96374; 96375; J1885; Q9967; J0360; J1630; J2060; J7030; J7040